=== PATIENT | female | born 1955 | race Two or more races ===

== ENCOUNTER 2023-04-06 09:05 | Outpatient (AMB) | payer MEDICARE, MEDICAID, SELFPAY ==
[2023-04-06 09:16] VITALS: BP 202/100; BMI 33.8
--- NOTE | 2023-04-06 09:16 | A.OFFPC_ITS ---
Vital Signs 04/06/23 09:16 04/06/23 10:05 Height 5 ft 3.39 in Weight 193 lb BMI 33.8 BP 202/100 H 188/90 H Blood Pressure Location Lt brachial Lt brachial Position Sitting Sitting Intake Visit Reasons: New patient-High BP Intake Note: New patient/ BP, Cholesterol Sap Integration Architect Required: No Accompanied by: Self / Same As Patient Allergies No Known Allergies Allergy (Verified 04/06/23 09:29) Medication List - Last Reconciled 04/06/23 by Kira Bridges MD No Known Home Meds Tobacco use date assessed: 04/06/23 Fall risk assessment: No Falls in past year Last assessed Fall Risk: 04/06/23 Dental Screening Dental Screen Date: 04/06/23 Did you have a dental visit in the last 12 months?: No Did you have a dental problem in the last 6 months where you did not have access to dental care?: No Was dental information given to patient?: Patient has dentist HPI HPI Comments History of Present Illness Details This is a 68-year-old female with hypertension, dyslipidemia, chronic diarrhea and moderate recurrent major depression that comes to establish care. She is alone in the room. Blood pressure elevated and she does take medication but forgot the name. She will call me today to let me know the name of antihypertensive and cholesterol medication. Lipid panel was ordered. Has chronic diarrhea after cholecystectomy most likely bile induced. I will start her on cholestyramine. Has depression and declines counseling but willing to start something that also helps for her insomnia. No chest pain or shortness of breath. Last mammogram was over a year ago. Does not recall having a bone density test. [facility] Surgical History History of cholecystectomy Family History Father Substance use disorder Mother Substance use disorder Social History Housing: Apartment Alcohol intake: current Alcohol intake frequency: holidays/special occasions only Alcohol type: beer Patient Tobacco Use Status: Current everyday Tobacco user Tobacco use type: Cigarette Cigarettes Per Day: 6 e-Cigarette/Vaping Use: Never Used Second Hand Smoke Exposure: No service: No Current occupational status: unemployed Cognitive needs: No Hearing needs: No Vision needs: Yes Questionnaire PHQ-9 Over the last 2 weeks, how often have you been bothered by any of the following problems? 1. Little interest or pleasure in doing things: more than half the days 2. Feeling down, depressed, or hopeless: nearly every day 3. Trouble falling or staying asleep, or sleeping too much: nearly every day 4. Feeling tired or having little energy: several days 5. Poor appetite or overeating: more than half the days 6. Feeling bad about yourself - or that you are a failure or have let yourself or your family down: several days 7. Trouble concentrating on things, such as reading the newspaper or watching television: several days 8. Moving or speaking so slowly that other people could have noticed. Or the opposite - being so fidgety or restless that you have been moving around a lot more than usual: not at all 9. Thoughts that you would be better off or of hurting yourself in some way: not at all Total score: 13 Depression Screening Interpretation: Positive Depression Screening Follow-up: Existing condition and New Medication prescribed 50703 - PHQ-9 Billing: Yes Source: Developed by Drs. Kee James, Vangie Dinh, Pj Garza and colleagues, with an educational jassi from [employer] Thrive Questionnaire Date Thrive assessed: 04/06/23 I am a: Patient What is your living situation today?: I have a steady place to live Within the past 12 months, did the food you bought not last and you didn't have the money to get more?: Never true Within the past 12 months, did you worry whether your food would run out before you got money to buy more?: Never true Do you have trouble paying for medicines?: No Do you have trouble getting transportation to medical appointments?: No Do you have trouble paying your heating and electricity bill?: No Do you have trouble taking care of your child, family member or friend?: No Do you have trouble with day-to-day activities such as bathing, preparing meals, shopping, managing finances, etc.?: No Are you currently unemployed and looking for a job?: No Are you interested in more education?: No Please select the resources that you would like help with: None Currently or been in a relationship where the following occur: no concerns reported AUDIT C Alcohol Use Questionnaire (AUDIT-C) 1. How often do you have a drink containing alcohol?: Monthly or less 2. How many drinks containing alcohol do you have on a typical day when you are drinking?: 1 or 2 3. How often do you have six or more drinks on one occasion?: Never Total Score: 1 Score Reviewed/Action Taken: No AR-7 AMB Questionnaire AR-7 Date AR - 7 assessed: 04/06/23 Feeling nervous, anxious, or on edge: 1 = Several days Not being able to stop or control worryin = Not at all Worrying too much about different things: 1 = Several days Trouble relaxin = Not at all Being so restless that it is hard to sit still: 0 = Not at all Becoming easily annoyed or irritable: 1 = Several days Feeling afraid as if something awful might happen: 1 = Several days Total AR-7 score (0-4 normal; 5-9 mild; 10-14 moderate; 15-21 severe): 4 Source: Developed by Drs. Kee James, Vangie Dinh, Pj Garza and colleagues, with an educational jassi from [employer]. AR-7 Assessment Billing AR-7 Assessment Tool: AR-7 Assessment 26465 Review of Systems Const All systems reviewed & are unremarkable except as noted in HPI and below Eyes Reports no additional complaints, Denies change in vision and Denies other visual disturbances Card Denies chest pain at rest, Denies chest pain with activity, Denies edema, Denies irregular heart rhythm, Denies claudication, Denies dyspnea, Denies dyspnea on exertion, Denies orthopnea, Denies paroxysmal nocturnal dyspnea and Denies slow heart rate Resp Denies cough, Denies dyspnea and Denies dyspnea on exertion GI Denies abdominal pain, Denies change in bowel habits, Denies excessive flatus, Denies nausea and Denies vomiting Denies urinary incontinence, Denies urinary hesitancy and Denies urinary urgency Musc Denies abnormal gait, Denies atrophy, Denies deformity and Denies limited range of motion Skin/Breast Denies bleeding lesions, Denies changing lesions and Denies rash Neuro Denies abnormal gait and Denies lack of coordination Physical exam (Primary Care) Vital Signs: Last Vital Signs BP 202/100 H 04/06/23 09:16 BMI result Body Mass Index 33.8 Tobacco/Smoking Status: Tobacco use Status Tobacco use date assessed 04/06/23 04/06/23 09:28 Patient Tobacco Use Status Current everyday Tobacco 04/06/23 09:28 Tobacco use type Cigarette 04/06/23 09:28 e-Cigarette/Vaping Use Never Used 04/06/23 09:28 PHQ-9: PHQ-9 Score PHQ-9: Total score 13 04/06/23 09:34 Depression Screening Interpretation: Positive Depression Screening Follow-up: Existing condition and New Medication prescribed Thrive Assessment: Date of Thrive Assessment Date Thrive assessed 04/06/23 04/06/23 09:28 Currently or been in a relationship where the following occur: no concerns reported Eyes General: appearance normal, both eyes and all related structures Eyelids: Yes eyelids normal Conjunctivae: conjunctivae normal Neck Neck: Yes normal visual inspection and Yes supple Resp Effort & Inspection: normal respiratory effort Auscultation: clear to auscultation bilaterally Cardio Jugular venous distension: no JVD Rate: regular rate Rhythm: regular rhythm Heart sounds: S1 normal heart sound present and S2 normal heart sound present Extrem General: Yes full ROM Assessment and Plan Assessment & Plan (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 (2) Essential hypertension: Code(s): I10 - Essential (primary) hypertension Plan: Recheck blood pressure with nurse navigator in 3 weeks. She will call me to let me know what medication is she taking to see what changes I can do. Blood pressure goal is equal or less than 130/80. (3) Dyslipidemia: Code(s): E78.5 - Hyperlipidemia, unspecified Plan: Continue statins. Repeat lipid panel. (4) Moderate recurrent major depression: Code(s): F33.1 - Major depressive disorder, recurrent, moderate Plan: Start venlafaxine at bedtime. Patient declines counseling. Orders: Orders Comprehensive Bessie. Panel Fast Today I10 - Essential (primary) hypertension Lipid Panel Today E78.5 - Hyperlipidemia, unspecified Vitamin D 25-OH Total Today E55.9 - Vitamin D deficiency, unspecified XR DEXA axial skeleton Today N95.9 - Unspecified menopausal and perimenopausal disorder MM screening mammo BI Today Z12.31 - Encounter for screening mammogram for malignant neoplasm of breast Referrals Gastroenterology Referral Z12.11 - Encounter for screening for malignant neoplasm of colon Medications: New venlafaxine ER 37.5 mg PO BEDTIME 90 days 90 caps 1RF F33.1 - Major depressive disorder, recurrent, moderate cholestyramine (with sugar) 4 gram administer w/meal; avoid other meds within 1hr before or 4-6hr after dose 4 grams PO DAILY 30 days PRN 60 ea 0RF diarrhea K90.89 - Other intestinal malabsorption Coding Level of Care Code New Pt Level 4 (23087) Diagnoses Bile salt-induced diarrhea K90.89 Essential hypertension I10 Dyslipidemia E78.5 Moderate recurrent major depression F33.1 Additional Codes AR-7 Assessment Billing - AR-7 Assessment Tool: AR-7 Assessment 22424 ([id number]) Time Spent (min) 24
[2023-04-06 10:05] VITALS: BP 188/90
== END 2023-04-06 09:41 | disposition home or self-care (01) ==
PROVIDERS: Visit Provider Internal Medicine
DX: K90.89 Other intestinal malabsorption (principal); I10 Essential (primary) hypertension; E78.5 Hyperlipidemia, unspecified; F33.1 Major depressive disorder, recurrent, moderate
CPT/HCPCS: 96127; 99204

== ENCOUNTER 2023-04-28 10:28 | Outpatient (REF) | payer MEDICARE, MEDICAID, SELFPAY ==
[2023-04-28 13:24] LABS: Alanine Aminotransferase 16 U/L (0-31); Albumin Level 3.8 g/dL (3.5-5.0); Alkaline Phosphatase 125 U/L (39-117); Anion Gap 11 (12-20); Aspartate Amino Transferase 15 U/L (5-31); Bilirubin Total 0.5 mg/dL (0.0-1.0); Blood Urea Nitrogen 14 mg/dL (9-16); Calcium 9.9 mg/dL (8.4-10.2); Carbon Dioxide 30 mmol/L (22-29); Chloride 104 mmol/L (96-108); Cholesterol 182 mg/dL; Estimated Glomerular Filt Rate > 60; Glucose Fasting 111 mg/dL (60-99); HDL Cholesterol 29 mg/dL; LDL Cholesterol Calculated 122 mg/dl; Potassium 4.2 mmol/L (3.3-5.1); Sodium 141 mmol/L (135-145); Total Protein 7.7 g/dL (6.5-8.0); Triglycerides 155 mg/dL; Vitamin D 25-OH Total 13.5 ng/mL (>30)
== END 2023-04-28 10:29 | disposition home or self-care (01) ==
LOC: HO.LAB 10:28
PROVIDERS: PCP Internal Medicine; Visit Provider Internal Medicine
DX: E55.9 Vitamin D deficiency, unspecified (principal); E78.5 Hyperlipidemia, unspecified; I10 Essential (primary) hypertension
CPT/HCPCS: 36415; 80053; 80061; 82306